=== PATIENT | female | born 1995 | race Native Hawaiian/Other Pacific Islander ===

== ENCOUNTER 2022-01-24 10:03 | Outpatient (CLI) | payer OTHER | END 2022-01-24 19:00 | disposition home or self-care (01) | LOC: US 10:03 | PROVIDERS: ATTEND Nurse Practitioner Family | DX: R94.6 Abnormal results of thyroid function studies (principal); R74.8 Abnormal levels of other serum enzymes ==

== ENCOUNTER 2022-02-10 07:55 | Outpatient (CLI) | payer OTHER | END 2022-02-10 19:20 | disposition home or self-care (01) | LOC: CT 07:55 | PROVIDERS: ATTEND Nurse Practitioner Family | DX: R74.8 Abnormal levels of other serum enzymes (principal); R10.9 Unspecified abdominal pain; R23.1 Pallor | CPT/HCPCS: Q9963 ==